=== PATIENT | male | born 1990 | race African-American/Black ===

== ENCOUNTER 2019-05-12 22:53 | Emergency (ER) | payer SELFPAY ==
[~2019-05-12] VITALS: Ht 172.7 cm; Wt 75.0 kg
[~2019-05-12 22:53] MED LIST: PERCOCET 10/3251 TA1 PO; TYLENOL 325 MG325 MG PO
[2019-05-12 23:13] VITALS: Ht 172.7 cm; Wt 75.0 kg
[2019-05-13] MEDS ORDERED: AUGMENTIN 875-11 TAB PO (00:18)
[2019-05-13 00:39] VITALS: BP 126/73
== END 2019-05-13 00:40 | disposition home or self-care (01) ==
LOC: D.ER 22:53
DX: J32.9 Chronic sinusitis, unspecified (principal); F17.200 Nicotine dependence, unspecified, uncomplicated